=== PATIENT | female | born 2000 | race Caucasian/White ===

== ENCOUNTER 2023-08-03 20:01 | Outpatient (REF) | payer OTHER, SELFPAY ==
[2023-08-08 15:08] LABS: Age Gdln ACOG Testing Note (.); IGP, rfx Aptima HPV ASCU Note (.)
== END 2023-08-03 20:02 | disposition home or self-care (01) ==
LOC: LAB 20:01
PROVIDERS: Visit Provider Physician Assistant
DX: Z01.419 Encounter for gynecological examination (general) (routine) without abnormal findings (principal)
CPT/HCPCS: G0145

== ENCOUNTER 2024-09-24 16:19 | Outpatient (REF) | payer BC, SELFPAY ==
--- OUTSIDE RECORDS SUMMARY | 2024-09-24 16:39 | XMS_ITS | CCD ---
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 Phone CIRA, LUIS Mccallum Unavailable Unavailable DENIS, LUIS E Unavailable Unavailable DENIS, LUIS E Unavailable Unavailable DENIS, LUIS E Unavailable Unavailable DENIS, LUIS E Unavailable Unavailable DENIS, LUIS E Unavailable Unavailable DENIS, LUIS E Unavailable Unavailable DENIS, LUIS E Unavailable Unavailable DENIS, LUIS E Unavailable Unavailable DENIS, LUIS E Unavailable Unavailable DENIS, LUIS E Unavailable Unavailable RONAL LING V Unavailable Unavailable NO FAMILY, PHYSICIAN Primary Care Provider Unava ilANTONELLA Jorge Emergency Provider [phone] Richi Weathers Admitting Unavailable Richi Weathers Attending Unavailable NO FAMILY, PHYSICIAN Primary Care Unavailable JOSHUA RUBI Attending Unavailable JOSHUA RUBI Referring Unavailable JOSHUA RUBI Attending Unavailable JOSHUA RUBI Attending Unavailable ADAN RUELAS Attending Unavailable JOSHUA RUBI Referring Unavailable JONNATHAN SRINIVASAN Attending Unavailable Medications Current Medications Medication Drug Class(es) Dates Sig (Normalized) Sig (Original) dicyclomine hydrochloride 20 mg oral tablet (1 source) Anticholinergic Start: 05-19-2023 take 20 mg by mouth four times daily Dicyclomine Active 20 MG PO Four times daily May 19, 2023 12:00am Completed/Discontinued Medications Medication Drug Class(es) Dates Sig (Normalized) Sig (Original) Control (1 source) Start: 04-27-2019 End: 05-19-2023 Control Discontinued April 27, 2019 12:00am May 19, 2023 6:24pm Problems Active Problems Problem Classification Problem Date Documented Da te Episodic/Chronic Abdominal pain (6 sources) Unspecified abdominal pain; Translations: [Abdominal pain] Onset: 09-07-2017 05-19-2023 Episodic Esophageal disorders (1 source) Gastro-esophageal reflux disease without esophagitis; Translations: [GERD WITHOUT ESOPHAGITIS] Onset: 09-08-2017 Chronic Other gastrointestinal disorders (1 source) Constipation; Translations: [Constipation, unspecified] 05-19-2023 Episodic Syncope (1 source) Vasovagal syncope; Translations: [Syncope and collapse] 04-27-2019 Episodic Past or Other Problems Problem Classification Problem Date Documented Da te Episodic/Chronic Bacterial infection (4 sources) Other specified bacterial agents as the cause of diseases classified elsewhere; Translations: [OTH SPEC BACTERIAL DZ CLASS ELSW] Onset: 08-14-2017 Episodic Results Test Name Value Interpretation Reference Range Facility CT abdomen pelvis w conon CT abdomen pelvis w con [facility] [place] [address] [place] [address] CT Scan Report Signed Patient: Sourav Roldan MR#: [id number] : 2000 Acct:[id number] Age/Sex: 22 / F ADM Date: 05/19/23 Loc: ER Room: Type: [facility] ER Attending Dr: Copies to: Richi Weathers PA-C Ordering Provider: Richi Weathers PA-C Date of Service: 05/19/23 CT/CT abdomen pelvis w con: Abdominal Pain CT abdomen pelvis w con 05/19/2023 7:58 PM SIGNS AND SYMPTOMS: Left lower quadrant pain TECHNIQUE: Multidetector ct axial images of the abdomen and pelvis were obtained with IV contrast. Multiplanar reformats were performed and reviewed to further define anatomy and possible pathology. CT was performed with one or more of the following dose reduction techniques: Automated exposure control, adjustment of the mA and/or kV according to patient size, or use of iterative reconstruction technique. COMPARISON: None. FINDINGS: Lower Chest: Within normal limits. ABDOMEN: Liver: There is diffuse hypoattenuation of the liver parenchyma suggesting hepatic steatosis. Bile Ducts: Normal caliber. Gallbladder: No calcified gallstones. Normal caliber wall. Pancreas: Within normal limits. Spleen: Within normal limits. Adrenals: Within normal limits. Kidneys: Within normal limits. Pelvis: Reproductive Organs: No pelvic masses. Ureters: Within normal limits. Bladder: Within normal limits. Bowel: Normal caliber. There are a few uncomplicated colonic diverticula. There is a normal appendix in the right lower quadrant. Mesenteric Lymph Nodes: No enlarged mesenteric lymph nodes. Peritoneum: There is a small amount of free fluid in the pelvis which may be physiologic. Vessels: within normal limits Retroperitoneum: Within normal limits. Abdominal Wall: Within normal limits. Bones: Bilateral L5 pars defects are noted. There is minimal grade 1 spondylolisthesis of L5 upon S1. Degenerative changes are noted in the sacroiliac joints. CT/CT abdomen pelvis w con IMPRESSION: No bowel obstruction or obstructive uropathy. There is diffuse hypoattenuation of the liver parenchyma suggesting hepatic steatosis. Uncomplicated colonic diverticula are noted. There is a small amount of free fluid in the pelvis which may be physiologic. Bilateral L5 pars defects are noted. There is minimal grade 1 spondylolisthesis of L5 upon S1. Impression dictated by: John Weber M.D.05/20/2023 10:49 AM Dictation Location: [place] [address] Transcribed By: [facility] 05/20/23 1049 Dictated By: John Weber II, MD 05/20/23 1039 Signed By: 05/20/23 1049 Normal [facility] Alanine aminotransferase [En zymatic activity/volume] in Serum or PlasmaOrdered By: Richi Weathers on 05-19-2023 ALT [Catalytic activity/Vol] 16 U/L 7-52 [facility] Albumin [Mass/volume] in Ser um or Plasma by Bromocresol green (BCG) dye binding methoOrdered By: Richi Weathers on 05-19-2023 Albumin BCG dye [Mass/Vol] 4.3 g/dL 3.5-5.7 [facility] Alkaline phosphatase [Enzyma tic activity/volume] in Serum or PlasmaOrdered By: Richi Weathers on 05-19-2023 ALP [Catalytic activity/Vol] 49 U/L 34-104 [facility] Aspartate aminotransferase [ Enzymatic activity/volume] in Serum or PlasmaOrdered By: Richi Weathers on 05-19-2023 AST [Catalytic activity/Vol] 16 U/L 13-39 [facility] Automated erythrocytes count in urine sediment (number/area)Ordered By: Richi Weathers on 05-19-2023 RBC Auto (Urine sed) [#/Area] 1-2 [HPF] 0-4 [facility] Automated leukocytes count i n urine sediment (number/area)Ordered By: Richi Weathers on 05-19-2023 WBC Auto (Urine sed) [#/Area] 0-1 [HPF] 0-4 [facility] Basic Metabolic Panelon Anion gap [Moles/Vol] 9.0 mmol/L Normal 6.0-15.0 [facility] Comment on above: Performed By: #### C BC, HEPATIC, LIPASE, BMP #### [facility] [address] Calcium [Mass/Vol] 9.4 mg/dL Normal 8.6-10.3 [facility] Comment on above: Performed By: #### C BC, HEPATIC, LIPASE, BMP #### [facility] [address] Chloride [Moles/Vol] 108 mmol/L High 98-107 [facility] Comment on above: Performed By: #### C BC, HEPATIC, LIPASE, BMP #### [facility] [address] CO2 [Moles/Vol] 26.7 mmol/L Normal 21.0-31.0 [facility] Comment on above: Performed By: #### C BC, HEPATIC, LIPASE, BMP #### [facility] [address] [place] [address] [place] Creatinine [Mass/Vol] 0.63 mg/dL Normal 0.60-1.20 [facility] Comment on above: Performed By: #### C BC, HEPATIC, LIPASE, BMP #### [facility] [address] [place] [address] [place] Creatinine Clr Calc Pharmacy 159.61 [facility] Comment on above: Performed By: #### C BC, HEPATIC, LIPASE, BMP #### [facility] [address] [place] [address] [place] GFR/1.73 sq M.predicted MDRD (S/P/Bld) [Vol rate/Area] mL/min/{1.73_m2} [facility] Comment on above: Performed By: #### C BC, HEPATIC, LIPASE, BMP #### [facility] [address] Glucose [Mass/Vol] 90 mg/dL Normal 70-100 [facility] Comment on above: Result Comment: [place] Glucose Reference Range is dependent on time and content of last meal. Glucose of more than 200 mg/dL in a nonstressed, ambulatory subject supports the diagnosis of Diabetes Mellitus. ADA recommended reference range Performed By: #### C BC, HEPATIC, LIPASE, BMP #### [facility] [address] Potassium [Moles/Vol] 3.7 mmol/L Normal 3.5-5.1 [facility] Comment on above: Performed By: #### C BC, HEPATIC, LIPASE, BMP #### [facility] [address] Sodium [Moles/Vol] 140 mmol/L Normal 136-145 [facility] Comment on above: Performed By: #### C BC, HEPATIC, LIPASE, BMP #### [facility] [address] Urea nitrogen [Mass/Vol] 9 mg/dL Normal 7-25 [facility] Comment on above: Performed By: #### C BC, HEPATIC, LIPASE, BMP #### [facility] [address] Basophils Auto (Bld) [#/Vol] Ordered By: Richi Weathers on 05-19-2023 Basophils (Bld) [#/Vol] 0.0 10*3/uL 0.0-0.2 [facility] Basophils/100 WBC Auto (Bld) Ordered By: Richi Weathers on 05-19-2023 Basophils/100 WBC (Bld) 0.3 % . [facility] Bilirubin Test strip Ql (U)O rdered By: Richi Weathers on 05-19-2023 Bilirubin Ql (U) Negative Negative [facility] Bilirubin.direct [Mass/volum e] in Serum or PlasmaOrdered By: Richi Weathers on 05-19-2023 Bilirubin.direct [Mass/Vol] 0.10 mg/dL 0.03-0.18 [facility] Bilirubin.total [Mass/volume ] in Serum or PlasmaOrdered By: Richi Weathers on 05-19-2023 Bilirubin [Mass/Vol] 0.3 mg/dL 0.3-1.0 [facility] Calcium [Mass/volume] in Ser um or PlasmaOrdered By: Richi Weathers on 05-19-2023 Calcium [Mass/Vol] 9.4 mg/dL 8.6-10.3 [facility] Carbon dioxide, total [Moles /volume] in Serum or PlasmaOrdered By: Richi Weathers on 05-19-2023 CO2 [Moles/Vol] 26.7 mmol/L 21.0-31.0 [facility] Chloride [Moles/volume] in S anny or PlasmaOrdered By: Richi Weathers on 05-19-2023 Chloride [Moles/Vol] 108 mmol/L 98-107 [facility] Color Auto (U)Ordered By: Hugo Weathers on 05-19-2023 Color (U) Yellow Yellow [facility] Complete Blood Count Auto Di ffon 05-19-2023 Basophils (Bld) [#/Vol] 0.0 10*3/uL Normal 0.0-0.2 [facility] Comment on above: Result Comment: PERF ORMED BY: [place] [address] PATHOLOGIST COTTON TIPPER OZZIE CHA M.D. Performed By: #### C BC, HEPATIC, LIPASE, BMP #### [facility] [address] [place] [address] [place] Basophils/100 WBC (Bld) 0.3 % Normal . [facility] Comment on above: Performed By: #### C BC, HEPATIC, LIPASE, BMP #### [facility] [address] [place] [address] [place] Eosinophils (Bld) [#/Vol] 0.1 10*3/uL Normal 0.0-0.45 [facility] Comment on above: Performed By: #### C BC, HEPATIC, LIPASE, BMP #### [facility] [address] [place] [address] [place] Eosinophils/100 WBC (Bld) 1.1 % Normal . [facility] Comment on above: Performed By: #### C BC, HEPATIC, LIPASE, BMP #### [address] Erythrocyte distribution width (RBC) [Ratio] 12.8 % Normal 11.9-15.3 [facility] Comment on above: Performed By: #### C BC, HEPATIC, LIPASE, BMP #### [address] Hematocrit (Bld) [Volume fraction] 36.8 % Normal 34.0-46.4 [facility] Comment on above: Performed By: #### C BC, HEPATIC, LIPASE, BMP #### [address] Hemoglobin (Bld) [Mass/Vol] 12.1 g/dL Normal 11.8-15.4 [facility] Comment on above: Performed By: #### C BC, HEPATIC, LIPASE, BMP #### [address] Lymphocytes (Bld) [#/Vol] 3.0 10*3/uL Normal 1.00-4.8 [facility] Comment on above: Performed By: #### C BC, HEPATIC, LIPASE, BMP #### [address] Lymphocytes/100 WBC (Bld) 23.6 % Normal . [facility] Comment on above: Performed By: #### C BC, HEPATIC, LIPASE, BMP #### [address] MCH (RBC) [Entitic mass] 29.2 pg Normal 24.7-34.3 [facility] Comment on above: Performed By: #### C BC, HEPATIC, LIPASE, BMP #### [address] MCV (RBC) [Entitic vol] 88.6 fL Normal 80-[address] [facility] Comment on above: Performed By: #### C BC, HEPATIC, LIPASE, BMP #### [facility] [address] Mean Corpuscular HGB Conc 33.0 g/dL Normal 32.0-35.0 [facility] Comment on above: Performed By: #### C BC, HEPATIC, LIPASE, BMP #### [facility] [address] [place] [address] [place] Monocytes (Bld) [#/Vol] 0.8 10*3/uL Normal 0.0-0.8 [facility] Comment on above: Performed By: #### C BC, HEPATIC, LIPASE, BMP #### [facility] [address] [place] [address] [place] Monocytes/100 WBC (Bld) 18.15 % Normal 0.00-20.[address] [facility] Comment on above: Performed By: #### C BC, HEPATIC, LIPASE, BMP #### [facility] [address] [place] [address] [place] Monocytes/100 WBC (Bld) 6.3 % Normal . [facility] Comment on above: Performed By: #### C BC, HEPATIC, LIPASE, BMP #### [facility] [address] [place] [address] [place] Neutrophils (Bld) [#/Vol] 8.8 10*3/uL High 1.8-7.7 [facility] Comment on above: Performed By: #### C BC, HEPATIC, LIPASE, BMP #### [facility] [address] [place] [address] [place] Neutrophils/100 WBC (Bld) 68.7 % Normal . [facility] Comment on above: Performed By: #### C BC, HEPATIC, LIPASE, BMP #### [facility] [address] [place] [address] [place] NRBC% 0.1 /100{WBC} Normal 0-0.5 [facility] Comment on above: Performed By: #### C BC, HEPATIC, LIPASE, BMP #### [facility] [address] [place] [address] [place] Platelet mean volume (Bld) [Entitic vol] 9.4 fL Normal 6.3-10.7 [facility] Comment on above: Performed By: #### C BC, HEPATIC, LIPASE, BMP #### [facility] [address] Platelets (Bld) [#/Vol] 297 10*3/uL Normal 150-450 [facility] Comment on above: Performed By: #### C BC, HEPATIC, LIPASE, BMP #### [facility] [address] RBC (Bld) [#/Vol] 4.16 10*6/uL Normal 3.60-5.00 [facility] Comment on above: Performed By: #### C BC, HEPATIC, LIPASE, BMP #### [facility] [address] WBC (Bld) [#/Vol] 12.8 10*3/uL High 3.8-11.6 [facility] Comment on above: Performed By: #### C BC, HEPATIC, LIPASE, BMP #### [address] Creatinine [Mass/volume] in Serum or PlasmaOrdered By: Richi Weathers on 05-19-2023 Creatinine [Mass/Vol] 0.63 mg/dL 0.60-1.20 [facility] Dipstick and Microscopicon 1 07-19-2022 Appearance (U) Clear Normal Clear [facility] Comment on above: Order Comment: Name Collection Type:: Clean-Voided Midstream Performed By: #### A DDONUAPLUS UHCG #### [address] Bacteria,Urine None Seen Normal None Seen [facility] Comment on above: Order Comment: Name Collection Type:: Clean-Voided Midstream Performed By: #### A DDONUAPLUS UHCG #### [address] Bilirubin,Urine Negative Normal Negative [facility] Comment on above: Order Comment: Name Collection Type:: Clean-Voided Midstream Performed By: #### A DDONUAPLUS UHCG #### [facility] [address] [place] [address] [place] Color (U) Yellow Normal Yellow [facility] Comment on above: Order Comment: Name Collection Type:: Clean-Voided Midstream Performed By: #### A DDONUAPLUS, UHCG #### [facility] [address] [place] [address] Glucose Ql (U) Normal Normal Normal [facility] Comment on above: Order Comment: Name Collection Type:: Clean-Voided Midstream Performed By: #### A DDONUAPLUS, UHCG #### [place] [address] [place] Hyaline Casts,Urine None Seen Normal 0-8 [facility] Comment on above: Order Comment: Name Collection Type:: Clean-Voided Midstream Performed By: #### A DDONUAPLUS, UHCG #### [address] Ketones Ql (U) Negative Normal Negative [facility] Comment on above: Order Comment: Name Collection Type:: Clean-Voided Midstream Performed By: #### A DDONUAPLUS, UHCG #### [place] [address] [place] Leukocyte esterase Test strip Ql (U) 1+ High Negative [facility] Comment on above: Order Comment: Name Collection Type:: Clean-Voided Midstream Performed By: #### A DDONUAPLUS, UHCG #### [facility] [address] [place] [address] [place] Nitrite,Urine Negative Normal Negative [facility] Comment on above: Order Comment: Name Collection Type:: Clean-Voided Midstream Performed By: #### A DDONUAPLUS, UHCG #### [facility] [address] [place] [address] [place] Occult Blood,Urine Negative Normal Negative [facility] Comment on above: Order Comment: Name Collection Type:: Clean-Voided Midstream Performed By: #### A DDONUAPLUS, UHCG #### [place] [address] [place] pH (U) 6.5 [pH] Normal 5.0-9.0 [facility] Comment on above: Order Comment: Name Collection Type:: Clean-Voided Midstream Performed By: #### A DDONUAPLUS, UHCG #### [address] Protein,Urine Negative Normal Negative [facility] Comment on above: Order Comment: Name Collection Type:: Clean-Voided Midstream Performed By: #### A DDONUAPLUS, UHCG #### [address] RBC,Urine 1-2 Normal 0-4 [facility] Comment on above: Order Comment: Name Collection Type:: Clean-Voided Midstream Performed By: #### A DDONUAPLUS, UHCG #### [address] Specificy [place],Urine 1.010 Normal 1.001-1.030 [facility] Comment on above: Order Comment: Name Collection Type:: Clean-Voided Midstream Performed By: #### A DDONUAPLUS, UHCG #### [address] Squamous Epithelial Cell,Urine 1-2 Normal 0-2 [facility] Comment on above: Order Comment: Name Collection Type:: Clean-Voided Midstream Performed By: #### A DDONUAPLUS, UHCG #### [address] Urobilinogen,Urine Normal Normal Normal [facility] Comment on above: Order Comment: Name Collection Type:: Clean-Voided Midstream Performed By: #### A DDONUAPLUS, UHCG #### [place] [address] [place] WBC LM.HPF (Urine sed) [#/Area] 0 /[HPF] Normal 0-4 [facility] Comment on above: Order Comment: Name Collection Type:: Clean-Voided Midstream Performed By: #### A DDONUAPLUS, UHCG #### [place] [address] Eosinophils Auto (Bld) [#/Vo l]Ordered By: Richi Weathers on 05-19-2023 Eosinophils (Bld) [#/Vol] 0.1 10*3/uL 0.0-0.45 [facility] Eosinophils/100 WBC Auto (Bl d)Ordered By: Richi Weathers on 05-19-2023 Eosinophils/100 WBC (Bld) 1.1 % . [facility] Erythrocyte distribution wid th Auto (RBC) [Ratio]Ordered By: Richi Weathers on 05-19-2023 Erythrocyte distribution width (RBC) [Ratio] 12.8 % 11.9-15.3 [facility] Globulin Calc (S) [Mass/Vol] Ordered By: Richi Weathers on 05-19-2023 Globulin (S) [Mass/Vol] 3.1 g/dL [facility] Glucose [Mass/volume] in Ser um or PlasmaOrdered By: Richi Weathers on 05-19-2023 Glucose [Mass/Vol] 90 mg/dL 70-100 [facility] Comment on above: ADA recommended refe rence rangeRandom Glucose Reference Range is dependent on time and content of last meal. Glucose of more than 200 mg/dL in a nonstressed, ambulatory subject supports the diagnosis of Diabetes Mellitus. HCG ( test) IA.rapi d Ql (U)Ordered By: Richi Weathers on 05-19-2023 HCG ( test) Ql (U) Negative [facility] HCG,Urineon 05-19-2023 Beta HCG ( test) Ql (U) Negative Normal [facility] Comment on above: Order Comment: Name Collection Type:: Clean-Voided Midstream Result Comment: PERF ORMED BY: [place] [address] PATHOLOGIST COTTON TIPPER OZZIE CHA M.D. Performed By: #### A DDONUAPIPO, [facility] #### [facility] [address] [place] [address] Hematocrit Auto (Bld) [Volum e fraction]Ordered By: Richi Weathers on 05-19-2023 Hematocrit (Bld) [Volume fraction] 36.8 % 34.0-46.4 [facility] Hemoglobin [Mass/volume] in BloodOrdered By: Richi Weathers on 05-19-2023 Hemoglobin (Bld) [Mass/Vol] 12.1 g/dL 11.8-15.4 [facility] Hepatic Panelon 05-19-2023 Albumin [Mass/Vol] 4.3 g/dL Normal 3.5-5.7 [facility] Comment on above: Performed By: #### C BC, HEPATIC, LIPASE, BMP #### [facility] [address] Albumin/Globulin [Mass ratio] 1.4 {ratio} Normal [facility] Comment on above: Performed By: #### C BC, HEPATIC, LIPASE, BMP #### [facility] [address] ALP [Catalytic activity/Vol] 49 U/L Normal 34-104 [facility] Comment on above: Performed By: #### C BC, HEPATIC, LIPASE, BMP #### [facility] [address] ALT [Catalytic activity/Vol] 16 U/L Normal 7-52 [facility] Comment on above: Performed By: #### C BC, HEPATIC, LIPASE, BMP #### [facility] [address] [place] [address] AST [Catalytic activity/Vol] 16 U/L Normal 13-39 [facility] Comment on above: Performed By: #### C BC, HEPATIC, LIPASE, BMP #### [facility] [address] [place] [address] [place] Bilirubin [Mass/Vol] 0.3 mg/dL Normal 0.3-1.0 [facility] Comment on above: Performed By: #### C BC, HEPATIC, LIPASE, BMP #### [facility] [address] [place] [address] [place] Bilirubin,Indirect 0.2 mg/dL Normal [facility] Comment on above: Performed By: #### C BC, HEPATIC, LIPASE, BMP #### [facility] [address] [place] [address] [place] Bilirubin.indirect [Mass/Vol] 0.10 mg/dL Normal 0.03-0.18 [facility] Comment on above: Performed By: #### C BC, HEPATIC, LIPASE, BMP #### [facility] [address] Globulin (S) [Mass/Vol] 3.1 g/dL Normal [facility] Comment on above: Performed By: #### C BC, HEPATIC, LIPASE, BMP #### [facility] [address] Protein [Mass/Vol] 7.4 g/dL Normal 6.4-8.9 [facility] Comment on above: Performed By: #### C BC, HEPATIC, LIPASE, BMP #### [address] Ketones Auto test strip (U) [Mass/Vol]Ordered By: Richi Weathers on 05-19-2023 Ketones (U) [Mass/Vol] Negative Negative [facility] - UrinalysisOrder ed By: Richi Weathers on 05-19-2023 Hyaline casts LM Ql (Urine sed) None seen [LPF] 0-8 [facility] Leukocytes [#/volume] correc kristine for nucleated erythrocytes in Blood by Automated counOrdered By: Richi Weathers on 05-19-2023 WBC corrected for nucl RBC Auto (Bld) [#/Vol] 12.8 10*3/uL 3.8-11.6 [facility] Lipaseon 05-19-2023 Lipase [Catalytic activity/Vol] 12.0 U/L Normal 11.0-82.0 [facility] Comment on above: Result Comment: PERF ORMED BY: [place] [address] PATHOLOGIST COTTON TIPPER OZZIE CHA M.D. Performed By: #### C BC, HEPATIC, LIPASE, BMP #### [address] Lipase [Enzymatic activity/v olume] in Serum or PlasmaOrdered By: Richi Weathers on 05-19-2023 Lipase [Catalytic activity/Vol] 12.0 U/L 11.0-82.0 [facility] Lymphocytes Auto (Bld) [#/Vo l]Ordered By: Richi Weathers on 05-19-2023 Lymphocytes (Bld) [#/Vol] 3.0 10*3/uL 1.00-4.8 [facility] Lymphocytes/100 WBC Auto (Bl d)Ordered By: Richi Weathers on 05-19-2023 Lymphocytes/100 WBC (Bld) 23.6 % . [facility] MCH Auto (RBC) [Entitic mass ]Ordered By: Richi Weathers on 05-19-2023 MCH (RBC) [Entitic mass] 29.2 pg 24.7-34.3 [facility] MCHC Auto (RBC) [Mass/Vol]Or dered By: Richi Weathers on 05-19-2023 MCHC (RBC) [Mass/Vol] 33.0 g/dL 32.0-35.0 [facility] MCV Auto (RBC) [Entitic vol] Ordered By: Richi Weathers on 05-19-2023 MCV (RBC) [Entitic vol] 88.6 fL 80-[address] [facility] Monocyte distribution width [Entitic volume] in Blood by AutomatedOrdered By: Richi Weathers on 05-19-2023 Monocyte distribution width Auto (Bld) [Entitic vol] 18.15 % 0.00-20.00 [facility] Monocytes Auto (Bld) [#/Vol] Ordered By: Richi Weathers on 05-19-2023 Monocytes (Bld) [#/Vol] 0.8 10*3/uL 0.0-0.8 [facility] Monocytes/100 WBC Auto (Bld) Ordered By: Richi Weathers on 05-19-2023 Monocytes/100 WBC (Bld) 6.3 % . [facility] Neutrophils Auto (Bld) [#/Vo l]Ordered By: Richi Weathers on 05-19-2023 Neutrophils (Bld) [#/Vol] 8.8 10*3/uL 1.8-7.7 [facility] Neutrophils/100 WBC Auto (Bl d)Ordered By: Richi Weathers on 05-19-2023 Neutrophils/100 WBC (Bld) 68.7 % . [facility] Nitrite Test strip Ql (U)Ord ered By: Richi Weathers on 05-19-2023 Nitrite Ql (U) Negative Negative [facility] No Panel InformationOrdered By: Richi Weathers on 05-19-2023 Estimated GFR (CKD-EPI) > 60.0 mL/Min [facility] Creatinine Clearance (Chem 159.61 [facility] Nucleated erythrocytes [Pres ence] in Blood by Automated countOrdered By: Richi Weathers on 05-19-2023 Nucleated RBC Auto Ql (Bld) 0.1 /100{WBC} 0-0.5 [facility] Platelet mean volume Auto (B ld) [Entitic vol]Ordered By: Richi Weathers on 05-19-2023 Platelet mean volume (Bld) [Entitic vol] 9.4 fL 6.3-10.7 [facility] Platelets Auto (Bld) [#/Vol] Ordered By: Richi Weathers on 05-19-2023 Platelets (Bld) [#/Vol] 297 10*3/uL 150-450 [facility] Potassium [Moles/volume] in Serum or PlasmaOrdered By: Richi Weathers on 05-19-2023 Potassium [Moles/Vol] 3.7 mmol/L 3.5-5.1 [facility] Protein Auto test strip (U) [Mass/Vol]Ordered By: Richi Weathers on 05-19-2023 Protein (U) [Mass/Vol] Negative Negative [facility] Protein [Mass/volume] in Ser um or PlasmaOrdered By: Richi Weathers on 05-19-2023 Protein [Mass/Vol] 7.4 g/dL 6.4-8.9 [facility] RBC Auto (Bld) [#/Vol]Ordere d By: Richi Weathers on 05-19-2023 RBC (Bld) [#/Vol] 4.16 10*6/uL 3.60-5.00 [facility] Serum or plasma albumin/glob ulin mass ratioOrdered By: Richi Weathers on 05-19-2023 Albumin/Globulin [Mass ratio] 1.4 {ratio} [facility] Serum or plasma anion gap de terminationOrdered By: Richi Weathers on 05-19-2023 Anion gap [Moles/Vol] 9.0 mmol/L 6.0-15.0 [facility] Serum or plasma non-glucuron idated bilirubin measurement (mass/volume)Ordered By: Richi Weathers on 05-19-2023 Bilirubin.indirect [Mass/Vol] 0.2 mg/dL [facility] Sodium [Moles/volume] in Ser um or PlasmaOrdered By: Richi Weathers on 05-19-2023 Sodium [Moles/Vol] 140 mmol/L 136-145 [facility] Specific gravity Auto test s trip (U) [Rel density]Ordered By: Richi Weathers on 05-19-2023 Specific gravity (U) [Rel density] 1.010 1.001-1.030 [facility] Squamous epithelial cells de tection in urine sediment by light microscopyOrdered By: Richi Weathers on 05-19-2023 Epithelial cells.squamous LM Ql (Urine sed) 1-2 [HPF] 0-2 [facility] Urea nitrogen [Mass/volume] in Serum or PlasmaOrdered By: Richi Weathers on 05-19-2023 Urea nitrogen [Mass/Vol] 9 mg/dL 7-25 [facility] Urine bacteria detection by automated methodOrdered By: Richi Weathers on 05-19-2023 Bacteria Auto Ql (U) None seen None Seen [facility] Urine clarity by refractomet ry automatedOrdered By: Richi Weathers on 05-19-2023 Clarity Refractometry automated (U) Clear Clear [facility] Urine glucose measurement by automated test strip (mass/volume)Ordered By: Richi Weathers on 05-19-2023 Glucose Auto test strip (U) [Mass/Vol] Normal mg/dL Normal [facility] Urine hemoglobin detection b y automated test stripOrdered By: Richi Weathers on 05-19-2023 Hemoglobin Auto test strip Ql (U) Negative Negative [facility] Urine leukocyte esterase det ection by automated test stripOrdered By: Richi Weathers on 05-19-2023 Leukocyte esterase Auto test strip Ql (U) 1+ Negative [facility] Urobilinogen Auto test strip (U) [Mass/Vol]Ordered By: Richi Weathers on 05-19-2023 Urobilinogen (U) [Mass/Vol] Normal mg/dL Normal [facility] WBC Auto (Bld) [#/Vol]Ordere d By: Richi Sarahy on 05-19-2023 WBC (Bld) [#/Vol] 12.8 10*3/uL 3.8-11.6 [facility] pH Auto test strip (U)Ordere d By: Richi Weathers on 05-19-2023 pH (U) 6.5 [pH] 5.0-9.0 [facility] US GALLBLADDERon 09-07-2017 US GALLBLADDER [address] [place] [address] Patient: SOURAV ROLDAN. Exam Date: 09/07/2017DOB: 2000 Gender:F : DR LUIS DENIS . Admission #: [id number] : Order #: [id number] HERE TO VIEW EXAM RADIOLOGY REPORT PROCEDURE: ULTRASOUND GALLBLADDER COMPARISON: None. INDICATIONS: Esophageal reflux N21.9; chronic bilateral lower abdominal pain R10.9 TECHNIQUE: Sonographic evaluation of the right upper quadrant of the abdomen was performed. FINDINGS:GALLBLADDER: No visible gallstones, wall thickening, or pericholecystic fluid. Negative sonographic Thomas's sign. BILIARY: No abnormal dilatation or visible calculus. Maximum common bile duct diameter: 3 mm. PANCREAS: Normal. No visible mass, abnormal atrophy, or ductal dilatation. OTHER: None. CONCLUSION: Normal examination. DICTATED BY: RONAL LING M.D. ON 09/07/2017 AT 08:03 APPROVED BY: RONAL LING M.D. ON 09/07/2017 AT 08:03 Normal [facility] US LIVERon 09-07-2017 US LIVER [address] [place] [address] Patient: SOURAV ROLDAN. Exam Date: 09/07/2017DOB: 2000 Gender:F : DR LUIS DENIS . Admission #: [id number] : Order #: [id number] HERE TO VIEW EXAM RADIOLOGY REPORT PROCEDURE: ULTRASOUND LIVER COMPARISON: None. INDICATIONS: Esophageal reflux K21.9; chronic bilateral lower abdominal pain R10.9 TECHNIQUE: Ultrasound examination of the selected structures was performed. FINDINGS: LIVER: Normal size and echotexture. BILIARY: No abnormal dilation or visible calculus. Maximum common bile duct diameter: 2.3 mm.GALLBLADDER: No visible gallstones, wall thickening, or pericholecystic fluid. Negative sonographic Thomas's sign. CONCLUSION: Normal examination. Dictated by: Ronal Ling M.D. on 09/07/2017 at 08:03 Approved by: Ronal Ling M.D. on 09/07/2017 at 08:04 Normal [facility] CLOSTRIDIUM DIFFICILE PCRon 08-15-2017 C difficile Toxin Gene FLOWER Negative Normal Negative [facility] Comment on above: Performed By: #### C DIFNAA ####[facility] [address] [place] [address]Jghgtc Thu CBC AUTO DIFFon 06-19-2017 Basophils Auto #/vol (Bld) 0.0 103/ul Normal 0.0-0.1 [facility] Comment on above: Performed By: #### C BC ####[facility] [address] [place] [address]66[address]Idlxoj Thu Basophils/100 WBC Auto (Bld) 0.7 % Normal 0.2-2.0 [facility] Comment on above: Performed By: #### C BC ####[facility] [address] [place] [address] 35068Zloxxf Thu Eosinophils 0.1 103/ul Normal 0.0-0.7 [facility] Comment on above: Performed By: #### C BC ####[facility] [address] [place] [address] 00207Kveqwz Thu Eosinophils/100 leukocytes 1.0 % Normal 0.9-7.0 [facility] Comment on above: Performed By: #### C BC ####[facility] [address] [place], [place] [address]Gerken Thu Erythrocyte distribution width Auto Ratio (RBC) 11.6 % Normal 11.0-15.0 [facility] Comment on above: Performed By: #### C BC ####[facility] [address] [place] [id number] Andino Erythrocytes (RBC) 4.63 106/ul Normal 4.20-5.40 [facility] Comment on above: Performed By: #### C BC ####[facility] [address]170 [place] [id number] Andino Hematocrit (HCT) 43.0 % Normal 36.0-48.0 [facility] Comment on above: Performed By: #### C BC ####[facility] E[address] [place] [address]Geradrian Andino Hemoglobin mass conc (Bld) 14.2 g/dL Normal 12.0-16.0 [facility] Comment on above: Performed By: #### C BC ####[facility] [address] [place], [place] [id number] Thu IG # 0.01 10e3/ul Normal 0.00-0.03 [facility] Comment on above: Performed By: #### C BC ####[facility] [address] [place] [address] Thu IG % 0.2 % Normal 0.0-0.5 [facility] Comment on above: Performed By: #### C BC ####[facility] [address] [place], [place] [address]Gerken Thu Lymphocytes 1.6 103/ul Normal 1.2-3.8 [facility] Comment on above: Performed By: #### C BC ####[facility] Fer[address] [place], [place] [address] Thu Lymphocytes/100 leukocytes 26.1 % Normal 20.5-60.0 [facility] Comment on above: Performed By: #### C BC ####[facility] [address] [place] [address] Thu MANUAL DIFF REQ NO Normal [facility] Comment on above: Performed By: #### C BC ####[facility] [address] [place], [place] [address]Gerken Thu MCH 30.7 pg Normal 26.7-34.0 [facility] Comment on above: Performed By: #### C BC ####[facility] [address] [place], [place] [address]Ykxncx Karen MCHC mass conc (RBC) 33.0 g/dL Normal 29.9-35.2 [facility] Comment on above: Performed By: #### C BC ####[facility] [address] [place], [place] [address]Axxayj Thu MCV 92.9 fL Normal 81.0-99.0 [facility] Comment on above: Performed By: #### C BC ####[facility] Yirt[address]xitj[address] [place], [place] [address]Yqptek Thu Monocytes 0.5 103/ul Normal 0.3-0.8 [facility] Comment on above: Performed By: #### C BC ####[facility] [address] [place] [address]Gerken Thu Monocytes/100 leukocytes 7.8 % Normal 1.7-12.0 [facility] Comment on above: Performed By: #### C BC ####[facility] Iqreb[address]vvb8483 [place], [place] [address]Jzqkpx Thu Neutrophils 3.9 103/ul Normal 1.4-6.5 [facility] Comment on above: Performed By: #### C BC ####[facility] X[address] [place], [place] [address]Dkmgin Thu Neutrophils/100 WBC Auto (Bld) 64.2 % Normal 43.0-75.0 [facility] Comment on above: Performed By: #### C BC ####[facility] [address]uzgmyps9300 [place], [place] [address]Mnlbgk Thu Platelet mean volume (PMV) 10.9 fL Normal 9.5-13.5 [facility] Comment on above: Performed By: #### C BC ####[facility] Jrrbofeils9292 [place], [place] [address]Mbaqny Thu Platelets 270 103/ul Normal 150-450 [facility] Comment on above: Performed By: #### C BC ####[facility] Jt[address] Thu WBC (Leukocytes) 6.1 103/ul Normal 4.0-11.0 [facility] Comment on above: Performed By: #### C BC ####[facility] Rybgic[address]oh[address] Thu CDIFF TOXIN PCRon 06-19-2017 C DIFF TOXIN PCR PERFORMED BY [facility] , FINAL REPORT TO FOLLOW Normal NEG CDIFF TOXIN [facility] Comment on above: Performed By: #### C DPCR ####[facility] Zrrizrihpu7226 [address] Thu CRPon 06-19-2017 C reactive protein (CRP) mg/L Normal <=1.0 [facility] Comment on above: Performed By: #### C RP, LIVER, BMP ####[facility] Pkraqnhaqv6419 [address] Thu CULTURE STOOLon 06-19-2017 CULTURE STOOL Culture Observations : Final, scanned result to follow in HPF Normal [facility] Comment on above: Performed By: #### C XST ####[facility] Epwgsirxib2723 [address] Thu LAB TESTINGon 06-19-2017 RECV HEADER SEE SCANNED REPORT I N HPF Normal [facility] Comment on above: Performed By: #### M ISC ####[facility] [address] [place] [address] Thu REV FROM REF LAB 06/22/2017 Normal [facility] Comment on above: Performed By: #### M ISC ####[facility] Ondkcsyzrg[address]77 [address] Thu SENT TO REF LAB 06/20/2017 Normal [facility] Comment on above: Performed By: #### M ISC ####[facility] I[address]zsosxujc4236 [address] Thu LIVER PROFILEon 06-19-2017 Alanine aminotransferase (ALT) 35 U/L Normal 9-52 [facility] Comment on above: Performed By: #### C RP, LIVER, BMP ####[facility] [address] [place] [address]Gerken Thu Albumin 4.6 g/dL Normal 3.5-5.0 [facility] Comment on above: Performed By: #### C RP, LIVER, BMP ####[facility] S[address]eca[address]94 [place] [address]Gerken Thu Albumin/Globulin Ratio 1.2 {ratio} Normal [facility] Comment on above: Performed By: #### C RP, LIVER, BMP ####[facility] Lgtyqth[address]ys27[address] [place] [address]Gerken Thu Alkaline phosphatase (ALP) 56 U/L Normal 38-126 [facility] Comment on above: Performed By: #### C RP, LIVER, BMP ####[facility] A[address]xmut[address] [place] [address]Gerken Thu Aspartate aminotransferase (AST) 27 U/L Normal 14-36 [facility] Comment on above: Performed By: #### C RP, LIVER, BMP ####[facility] Swuenpjcvu[address] Thu BILI, CONJUGATED 0.0 mg/dL Normal 0.0-0.3 [facility] Comment on above: Performed By: #### C RP, LIVER, BMP ####[facility] Gmbepcefgx9947 [address] Thu Bilirubin Ql (U) 0.6 mg/dL Normal 0.2-1.3 [facility] Comment on above: Performed By: #### C RP, LIVER, BMP ####[facility] [address]qu[address]sd37[address] [place] [address]Gerken Thu Globulin 3.8 g/dL Normal [facility] Comment on above: Performed By: #### C RP, LIVER, BMP ####[facility] Tfwidhrsws[address] [place] [address]Gerken Thu Protein 8.4 g/dL Critically high 6.1-8.2 [facility] Comment on above: Performed By: #### C RP, LIVER, BMP ####[facility] Izngrqianr4093 [place] [address]Gerken Thu PROF CHEM 8 (BAS METB)on Anion gap 15.7 mmol/L Normal [facility] Comment on above: Performed By: #### C RP, LIVER, BMP ####[facility] [address]az[address] [place] [address]Gerken Thu BUN/Creatinine Ratio 19.8 mg/mg Normal [facility] Comment on above: Performed By: #### C RP, LIVER, BMP ####[facility] Akn[address]qdlrc8809 [place] [address]Gerken Thu Calcium 10.2 mg/dL Normal 8.4-10.2 [facility] Comment on above: Performed By: #### C RP, LIVER, BMP ####[facility] Yrjjmflhun[address] Thu Chloride 104 mmol/L Normal 98-107 [facility] Comment on above: Performed By: #### C RP, LIVER, BMP ####[facility] Jelfkwikqw[address] Thu CO2 26.0 mmol/L Normal 22.0-30.0 [facility] Comment on above: Performed By: #### C RP, LIVER, BMP ####[facility] Dktuboxypi350[address] Thu Creatinine 0.73 mg/dL Normal 0.52-1.04 [facility] Comment on above: Performed By: #### C RP, LIVER, BMP ####[facility] [address]roes[address] [place] [address]Gerken Thu eGFR (non-black) mL/min/{1.73_m2} Normal >=60 Th [facility] Comment on above: Performed By: #### C RP, LIVER, BMP ####[facility] [address]mu[address] [place] [address]Gerken Thu Glucose mass conc 90 mg/dL Normal 74-106 [facility] Comment on above: Performed By: #### C RP, LIVER, BMP ####[facility] Xxrr[address]xaayv6[address] [place] [address]Gerken Thu Potassium molar conc 4.4 mmol/L Normal 3.4-5.0 [facility] Comment on above: Performed By: #### C RP, LIVER, BMP ####[facility] [address]uexpzd[address] [place], [place] [address]Spevob Thu Sodium 141 mmol/L Normal 137-145 [facility] Comment on above: Performed By: #### C RP, LIVER, BMP ####[facility] Gwzsgajizh3861 [place], [place] [address]Yhxxgi Thu Urea nitrogen 14.0 mg/dL Normal 6.4-19.3 [facility] Comment on above: Performed By: #### C RP, LIVER, BMP ####[facility] Labdbtshyl7540 [place], [place] [address]Xabjow Thu SED RATE [facility] 2016 SED RATE 14 mm/hr Normal <=20 [facility] Comment on above: Performed By: #### S EDR ####[facility] Mrsnbxgfct3700 [place], [place] [address]Odpreq Thu SEDRH METHOD AND NORMAL CHANGE 08/21/15. RESULTS ARE NOT AFFECTED BY HEMATOCRIT. Normal [facility] Comment on above: Performed By: #### S EDR ####[facility] [address] [place], [place] [address]Yoyesj Thu Vital Signs Date Time Vital Sign Value Performing Clinician Faci lity 05-19-2023 22:55-0400 Diastolic blood pressure 73 mm[Hg] PHYSICIAN NO [facility] 05-19-2023 22:55-0400 Heart rate 93 /min PHYSICIAN NO [facility] 05-19-2023 22:55-0400 Respiratory rate 20 /min PHYSICIAN NO [facility] 05-19-2023 22:55-0400 SaO2% (BldA) [Mass fraction] 100 % PHYSICIAN NO [facility] 05-19-2023 22:55-0400 Systolic blood pressure 142 mm[Hg] PHYSICIAN NO [facility] 05-19-2023 18:25-0400 Body height 165.1 cm PHYSICIAN NO [facility] 05-19-2023 18:25-0400 Body temperature 98.2 [degF] PHYSICIAN NO [facility] 05-19-2023 18:25-0400 Body weight 96.5 kg PHYSICIAN NO [facility] Encounters Encounter Date Encounter Type Care Provider Facility Start: 02-12-2024 End: 02-12-2024 ambulatory JOSHUA RUBI Not Available Start: 10-09-2023 End: 10-09-2023 ambulatory JOSHUA RUBI Not Available Start: 08-03-2023 End: 08-03-2023 ambulatory JONNATHAN SRINIVASAN Not Available Start: 06-19-2023 End: 06-19-2023 ambulatory JOSHUA RUBI Not Available Start: 06-01-2023 End: 06-01-2023 ambulatory HOACANDACE JESSENIA Not Available Start: 05-19-2023 End: 05-20-2023 Emergency department patient visit Richi Weathers Facility:[facility] Start: 05-19-2023 End: 05-19-2023 Emergency department patient visit PHYSICIAN NO [facility] Work Phone: Start: 09-07-2017 End: 09-08-2017 Ambulatory LUIS PATRICKIGHT Facility:[facility] Start: 08-14-2017 End: 08-14-2017 Ambulatory LUIS Alessio DENIS Facility:[facility] Start: 06-19-2017 End: 06-20-2017 Ambulatory LUIS Alessio DENIS Facility:[facility] Plan of Treatment Date Care Activity Detail Author Start: 05-19-2023 Computed tomography of abdomen and pelvis with contrast CT abdomen pelvis w con [facility] Start: 05-19-2023 CT Abdomen and Pelvi s W contrast IV [facility] Patient Education Constipation, Adult ED [facility] Work Phone: Patient referral [facility] Work Phone: Payers Date Payer Category Payer Private Health Insurance [id number] 2023 Self-pay [id number] 2022 Private Health Insurance [id number] 2000 Unknown [id number] 2.16.84 [id number] 1999 Unknown [id number] 2.16.84 [id number] 1999 Unknown [id number] 2.16.84 [id number] 1999 Unknown [id number] 1999 Unknown [id number] 1959 Unknown [id number] Unknown [id number] 2.16.8 [id number] Social History Date Type Detail Facility Start: 05-19-2023 Tobacco smoking stat [facility] Never smoked tobacco (finding) [facility] Start: 2000 Sex Assigned At Female F [facility] Evaluation note Note Date & Type Note Facility Evaluation note No assessment information availa ble [facility] Work Phone: Summary Purpose Family History No Family History Records FoundNo Family History Records FoundNo Family History Records Found Advance Directives No Advanced Directives Records Found Advance Directive Response Recorded Date/ Time Advance Directives No April 27, 2019 10:19am Chief Complaint and Reason for Visit Chief Complaint abd pain Additional Source Comments INFORMATION SOURCE (unrecogn ized section and content) DATE CREATED AUTHOR 01/05/2018 [facility] DATE CREATED AUTHOR AUTHOR'S ORGANIZ ATION 06/03/2023 [facility] DATE CREATED AUTHOR AUTHOR'S ORGANIZ ATION 02/14/2024 [facility] EPIC Care Teams (unrecognized sec tion and content) Team Status: Active Member Role Status Dates PHYSICIAN NO FAMILY Primary Care Provider Active Team Status: Inactive Member Role Status Dates PHYSICIAN NO FAMILY Primary Care Provider Active Richi Weathers PA-C Emergency Provider Active Goals (unrecognized section and content) Goals may be documented in a n alternate section FOR RECORDS PERTAINING TO PATIENTS WHO ARE OR HAVE BEEN ENROLLED IN A CHEMICAL DEPENDENCY/SUBSTANCEABUSE PROGRAM, SOME INFORMATION MAY BE OMITTED. This clinical summary was aggregated from multiple sources. Caution should be exercised in using it in the provision of clinical care. This summary normalizes information from multiple sources, and as a consequence, information in this document may materially change the coding, format and clinical context of patient data. In addition, data may be omitted in some cases. CLINICAL DECISIONS SHOULD BE BASED ON THE PRIMARY CLINICAL RECORDS. [facility]. provides no warranty or guarantee of the accuracy or completeness of information in this document.
[2024-10-02 14:09] LABS: Age Gdln ACOG Testing Note (.); IGP, rfx Aptima HPV ASCU Note (.)
== END 2024-09-24 16:20 | disposition home or self-care (01) ==
LOC: LAB 16:19
PROVIDERS: Visit Provider Physician Assistant
DX: Z01.419 Encounter for gynecological examination (general) (routine) without abnormal findings (principal)
CPT/HCPCS: 88175